=== PATIENT | female | born 1975 | race Caucasian/White ===

== ENCOUNTER 2025-06-26 01:39 | Day surgery (SDC) | payer OTHER, SELFPAY ==
[2025-06-18 08:42] VITALS: BMI 26.2
--- NOTE | 2025-06-18 08:47 | PC.NURSE ---
Report to the Outpatient Waiting Room, entrance under the green pavilion located off [facility], at time _0730_ on date _06/26/25. Planned Procedure Time: __929_.? Time changes happen often and if your time is changed the preop area will call you the afternoon before. - You and your visitor will be asked to self-screen and do not enter if you have any COVID symptoms. Please call surgeon if you need to reschedule. - A mask is optional within the hospital at this time. Patients may have clear liquids (water, carbonated beverages, clear teas, apple juice) until 3 hours prior to surgery with a maximum of 20 ounces. - No food from midnight until time of surgery and no smoking, or chewing tobacco (or any form of nicotine). No chewing gum, candy or mints. - Infants may have breast milk until 4 hours before surgery, infant formula 6 hours prior to surgery. - Children will be allowed to drink immediately following surgery.? If applicable, please bring a bottle or sippy cup to assist with drinking. Juice, water, soda, and popsicles are readily available.? For infants on formula, please bring formula the day of surgery.? Pacifiers are allowed. Take only the following medications with a SIP of water on the morning of surgery: _NONE DO NOT STOP ANY OF YOUR OTHER PRESCRIPTION MEDICATIONS PRIOR TO SURGERY EXCEPT THE FOLLOWING Hold all vitamins and supplements for 3 days per anesthesiologist. Medications to discontinue per physician Date to take last dose 06/23/25 Please no make-up, nail comoran, hairspray, perfume, deodorant, or body powder the day of surgery.? No jewelry (including any body piercings) or valuables the day of surgery, leave them at home.? Please take a shower or bath the night before, or the morning of, surgery with an antibacterial soap.? Wear comfortable, loose fitting clothing.? Children are encouraged to wear pajamas. - Jewelry must be removed prior to entering the operating room.? Rings and piercings that are not removed may be cut off. - The hospital will not accept responsibility for valuables.? - Please leave all valuables, including medications, at home the day of surgery. If you are going home after surgery, a licensed seasonal delivery driver must drive you home.? - NO public transportation without another adult if you receive anesthesia. - We recommend that an adult stay with you for 24 hours following discharge. - We also recommend that you do not drive, make important decision, drink alcoholic beverages, or take any drugs that were not prescribed by your health care provider for at least 24 hours after your discharge time. For Pediatric surgeries, we recommend two adults accompany the child home. Follow any additional instructions given to you from your surgeon. Telephone instructions given to PATIENT and asked if any additional questions and then verbalized understanding. Patient advised to call surgeon office or pre surgery nurse liaison [phone] if any additional questions.
--- NOTE | 2025-06-26 06:42 | W.PM.PROC2 ---
Procedure Note - Detailed Date of Procedure 06/26/25 Pre-op Diagnosis Skin Laxity Post-op Diagnosis Same Procedure Performed [id number] belt lipectomy with suction lipectomy Surgeon Blu Mobley MD Findings Tissue removed: [grams] grams Lipoaspirate: [cc] cc Description of Procedure They are here today for the above procedures. Previously and again today the risks, benefits, alternatives were discussed in extensive detail. I wanted them to be very realistic about the risks involved as well as expectations. We discussed aftercare and what to monitor for. I was very upfront about the risks of wound breakdown leading to loss of skin, open wounds, and need for additional procedures with permanent abdominal deformity. We discussed DVT/PE risks and management. Made sure answered all of their questions to their satisfaction today and consent was obtained. They were marked in the preoperative holding area with their verification. The patient was taken to the operating room. Anesthesia was provided by anesthesiology. A Scherer catheter was started. Posterior Placed prone on the operating room table with care taken to protect from injury. Prepped and draped in a standard sterile fashion. A surgical time-out was taken. Stab incisions were made and tumescent solution was infiltrated. Once adequate time was allowed for hemostasis a 5mm basket and 4mm iris cannula were utilized to complete suction lipectomy based on S.A.F.E. technique in multiple planes and passes. Suction lipectomy continued to result based on pre-operative planning, intra-operative observation, and rolling pinch test which were in full agreement. A 10 blade was used to make the upper incision and dissection was continued inferior elevating what we necessary for closure. I placed patient in slight jackknife position and excised intervening tissue. This was closed with 3 point suture with 2-0 Vicryl followed 2-0 PDO strattafix, 3-0 stratafix ,running subcuticular 4-0 Monocryl, and tissue glue. Laterally jose were placed for turning. Anterior Patient was then placed supine with care taken to protect from injury. I placed the patient in a flexed position to verify the upper and lower markings would reach. I then placed supine. A thorough abdominal examination was completed. Stab incisions were made and tumescent solution infiltrated. Stab incisions were made and tumescent solution was infiltrated. Once adequate time was allowed for hemostasis a 5mm basket and 4mm iris cannula were utilized to complete suction lipectomy based on S.A.F.E. technique in multiple planes and passes. Suction lipectomy continued to result based on pre-operative planning, intra-operative observation, and rolling pinch test which were in full agreement. A 10 blade was used to make the upper incision as well as the vertical ([id number]) incisions. I continued dissection down to the level of fascia. Elevated just what was necessary for repair of the diastasis (no undermining). I then again flexed the bed to verify the upper skin flap would reach the lower markings without tension. Once verified I placed her supine once again and a 10 blade used to make the lower incision. I elevated up to level the umbilicus and left the umbilicus intact on a well-vascularized stalk. The intervening tissue was removed. A 2 mm blunt cannula with 0.5% bupivacaine was injected deep to the fascia bilaterally. DIASTASIS I plicated the diastasis recti using 0 PDO Stratafix barbed suture. This was in 2 separate layers using 2 separate sutures as well. OBLIQUE REPAIR I also repaired lateral to the rectus using two layers of 0 PDO Stratafix. TRANSVERSE FASCIA REPAIR After the patient was flexed (below) plicated the fascia with 0 PDO Stratafix in two separate layers. The patient was flexed and starting from superior to inferior began plication using 2-0 Vicryl to obliterate all space in a standard progressive tension fashion while repairing the vertical incision. At the umbilicus I marked out the location of the skin and inset this with 3-0 Monocryl and 4-0 Vicryl. I continued the remainder of the plication using 2-0 Vicryl until I reached my lower planned scar line. I trimmed any excess skin of the upper flap making sure this was a tension-free closure. 15 Chad drain was placed. I then approximated using a 3 point suture with 2-0 Vicryl followed by 2-0 PDO Stratafix, 3-0 Stratafix ,running subcuticular 4-0 Monocryl, and tissue glue. Vertical was closed with 3-0 Stratafix, 4-0 Monocryl, and tissue glue. Fluffs and an abdominal binder were placed. The patient was transferred to the bed in a flexed position. Awoken and taken to the PACU without difficulty. All instrument and sponge counts were correct at the end of the case. Estimated Blood Loss 100 Drains Yes (15 Chad) Packing No Pathology None sent Complications No immediate complications Disposition PACU
[2025-06-26] MEDS: LACTATED RINGERS 1,000 ML 30 ML IV CONT (08:30)
[2025-06-26] MEDS: TRANEXAMIC ACID 1,000MG/ISO100 1,000 MG/100 ML BAG 200 MG IVPB (08:30)
[2025-06-26 08:35] LABS: Hematocrit 34.4 % (37.0-47.0); Hemoglobin 11.3 g/dL (12.0-15.0); Immature Platelet Fraction Pct 2.0 % (0.9-11.2); Mean Corpuscular HGB Conc 32.8 g/dl (32-36); Mean Corpuscular Hemoglobin 30.8 pg (26-34); Mean Corpuscular Volume 93.7 fl (80-100); Platelet Count Result 92 k/mm3 (150-375); Red Blood Count 3.67 M/mm3 (4.2-5.4); White Blood Count 2.2 K/mm3 (4.5-10.0)
[2025-06-26 09:11] VITALS: BP 150/97; PULSE 70; TEMP 36.6; O2SAT 100; BMI 27.8
--- NOTE | 2025-06-26 09:12 | P.PNAN_ITS ---
Anes - Initial Pre Proc Eval Procedure: Operation Date: 06/26/25 09:30 Proposed Procedures p Belt Lipectomy, [id number] with Liposuction - Blu Mobley MD Date/Time: 06/26/25 09:12 Surgeon: Blu Mobley MD Pre Op Diagnosis: Skin Laxity Patient Data Age: 50 Gender: F Height: 1.57 m Weight: 65 kg Allergies Allergy/AdvReac Type Severity Reaction Status Date / Time Penicillins Allergy Intermediate Rash Verified 06/26/25 08:54 Home Medications ?Medication ?Instructions ?Recorded ?Confirmed ?Type trazodone 100 mg tablet See Rx Instructions .Route 0 12/01/24 05/22/25 Rx .COMPLEX #30 tabs hydrocodone 5 mg-acetaminophen 325 1 tablet PO Q4H PRN pain #20 tabs 05/25/25 Rx mg tablet multivitamin-ferrous sulfate 18 mg 1 tablet PO DAILY 0 06/18/25 06/18/25 History tablet (One Daily Multivitamin with Iron) trazodone 100 mg tablet 50 mg PO HS PRN insomnia 06/18/25 History Laboratory Tests 06/26/25 06/26/25 07:48 08:15 WBC 2.2 L K/mm3 (4.5-10.0) RBC 3.67 L M/mm3 (4.2-5.4) Hgb 11.3 L g/dL (12.0-15.0) Hct 34.4 L % (37.0-47.0) MCV 93.7 fl (80-100) MCH 30.8 pg (26-34) MCHC 32.8 g/dl (32-36) RDW 13.2 % (11.5-14.5) Plt Count 92 L k/mm3 (150-375) MPV 9.5 fl (7.4-10.4) % Immature Plt Fraction 2.0 % (0.9-11.2) Cotinine Negative Patient hx anesthesia problems: none Family hx anesthesia problems: none Results Review: All pre-operative results and documents have been reviewed as part of the pre- operative evaluation. [facility] Past Medical History Medical History Chronic venous stasis (Unknown) Anxiety Migraine Morbid obesity with BMI of 40.0-44.9, adult (Unknown) Surgical History Surgical History History of tubal ligation (1995) History of section History of gastric bypass (2004) History of cholecystectomy (2012) Family History Family History Mother Hypertension Grandparent Hypertension Cerebrovascular accident Diabetes mellitus Social History Social History Smoking status: Never smoker Second hand tobacco smoke exposure: No Alcohol intake: current Drinks per week: 4 Alcohol use details: SOCIALLY Substance use: never Substance use type: does not use Living arrangements: with family Occupation/Education: occupation Gender identity (if verbalized by the patient): Female Sexual Orientation (if Verbalized by the Patient): Straight or Heterosexual Spiritual care concerns: No Agree to blood products: Yes Anes - Eval Final PreProcedure Day of Procedure 06/26/25 09:12 Patient weight: normal Heart: regular rate and rhythm Lungs: clear to auscultation Airway: Mallampati scale class II Neurological: alert and oriented Last oral intake: >/= 8 hours ASA classification: II Emergent: no Anesthetic plan: proceed Anesthesia type and monitoring: general ETT and standard monitoring Results Review: All pre-operative results and documents have been reviewed as part of the pre- operative evaluation. Informed Consent: The patient's anesthetic plan and its attendant risks and benefits were discussed with the patient/family/POA. Questions were solicited and answers provided to the satisfaction of the patient/family/POA.
--- NOTE | 2025-06-26 09:14 | WPDHPUPDATE1 ---
History and Physical Update Update Date/Time: 06/26/25 09:14 History and Physical has been reviewed, including an updated exam of the patient. There are NO changes in the patient's condition. Risks, benefits, and alternatives have been discussed and questions answered. Patient agrees to proceed with procedure.
--- NOTE | 2025-06-28 10:51 | PC.NURSE ---
06/26/2025 0830: Dr. Mobley was verbally told by this nurse ultrasound IV had to be placed and CBC was sent STAT when IV access was obtained at 0830.
== END 2025-06-26 09:56 | disposition home or self-care (01) ==
PROVIDERS: PCP Family Medicine; Visit Provider Surgery Plastic and Reconstructive Surgery
DX: Z41.1 Encounter for cosmetic surgery (principal); L57.4 Cutis laxa senilis; Z98.84 Bariatric surgery status; Z53.9 Procedure and treatment not carried out, unspecified reason
CPT/HCPCS: 36415; 80307; 85027; 85055; 99212; G0463; J0166; J1171; J2003; J7120

== ENCOUNTER 2025-06-27 11:11 | Outpatient (CLI) | payer OTHER, SELFPAY ==
[2025-06-27 11:34] LABS: Hematocrit 36.4 % (37.0-47.0); Hemoglobin 11.5 g/dL (12.0-15.0); Immature Granulocyte Percent A 0.9 % (0-0.5); Immature Platelet Fraction Pct 2.6 % (0.9-11.2); Lymphocytes Absolute Auto 0.63 K/mm3 (0.9-3.2); Mean Corpuscular HGB Conc 31.6 g/dl (32-36); Mean Corpuscular Hemoglobin 30.3 pg (26-34); Mean Corpuscular Volume 96.0 fl (80-100); Nucleated Red Blood Cells Absolute Auto 0.000 K/mm3 (0.0-0.012); Nucleated Red Blood Cells Perc 0.0 % (0.0-0.2); Platelet Count Result 95 k/mm3 (150-375); Red Blood Count 3.79 M/mm3 (4.2-5.4); White Blood Count 2.1 K/mm3 (4.5-10.0)
[2025-06-27 11:53] LABS: Alanine Aminotransferase 63 U/L (6-35); Albumin Level 3.8 g/dL (3.5-5.1); Alkaline Phosphatase 109 U/L (38-126); Anion Gap 5 mmol/L (4-12); Aspartate Amino Transferase 78 U/L (14-36); Bilirubin,Total 0.5 mg/dL (0.2-1.3); Blood Urea Nitrogen 8 mg/dL (7-17); Calcium 8.6 mg/dL (8.4-10.2); Carbon Dioxide 31 mmol/L (22-30); Chloride 104 mmol/L (98-107); Estimated Glomerular Filt Rate > 60; Glucose 83 mg/dL (65-110); Potassium 4.1 mmol/L (3.4-5.0); Sodium 140 mmol/L (137-145); Total Protein 6.9 g/dL (6.3-8.2)
[2025-06-27 12:49] LABS: HIV 1/2 Ab P24 Ag Result Negative (Negative)
== END 2025-06-27 11:12 | disposition home or self-care (01) ==
LOC: ANHLAB 11:12
PROVIDERS: PCP Family Medicine; Visit Provider Family Medicine
DX: D69.6 Thrombocytopenia, unspecified (principal)
CPT/HCPCS: 36415; 80053; 85025; 85055; 86703; G0432

== ENCOUNTER 2025-07-24 07:58 | Outpatient (CLI) | payer OTHER, SELFPAY ==
--- NOTE | ~2025-07-24 | US_ITS ---
Examination: US abdomen complete Clinical History: Pancytopenia . Comparison: Abdominal ultrasound 03/24/2024 Technique: Complete abdominal sonography Findings: Liver: Normal size. Normal echotexture. No intrahepatic biliary ductal dilatation. Normal hepatopedal flow main portal vein. Common duct: Normal caliber, 5 mm. Gallbladder: Removed. Spleen: Enlarged. Pancreas: Unremarkable. Kidneys: Unremarkable. Aorta: No aneurysmal dilatation. Retrohepatic IVC: Unremarkable. IMPRESSION: 1. No acute findings. 2. Splenomegaly. Reviewed, dictated and finalized at location R.
--- OUTSIDE RECORDS SUMMARY | 2025-07-24 08:14 | XMS_ITS | Clinical Summary ---
Author Organization [facility] Address [address] [place] [address] Phone Care Team Providers Care Lever Operator Name Role Phone Ros Davenport DO Primary Care Provider [phone] Chad Irwin MD Unavailable [phone] Allergies Active Allergy Reactions Criticality Noted Date Comments Amoxicillin Rash 07/20/2025 Medications traZODone (DESYREL) 100 MG Tablet Take 100 mg by mouth nightly. 5 Active TUBERCULIN SYR 1CC/26GX3/8 (B-D TB SYRINGE 1CC/26GX3/8) 26G X 3/8 1 ML Misc Use with b12 injections 10 Each 1 5 Active Cyanocobalamin (Vitamin Deficiency System-B12) 1000 MCG/ML Kit Vit b12 1000 mcg weekly x 4 weeks then q 4 weeks 10 Kit 1 5 Active Active Problems No known active problems Encounters Date Type Department Care Team Description 07/23/2025 Results Follow-Up [facility] [address] [place] [address] Chad Irwin MD HOMOCYSTEINE, THYROID STIMULATING HORMONE (TSH), C-REACTIVE PROTEIN (CRP) QUANT, Additional followed-up results: 10 07/20/2025 10:45 AM CDT Lab [facility] [address] [place] [address] Lab, C[facility] [place] Pancytopenia; History of Emron-en-Y gastric bypass 07/20/2025 10:30 AM CDT Office Visit [facility] [address] [address] Chad Irwin MD Pancytopenia (Primary Dx); History of Meron-en-Y gastric bypass 07/20/2025 Travel from Last 3 Months Family History Medical History Relation Name Comments High Cholesterol Mother Hypertension Mother Relation Name Status Comments Father Alive Mother Alive Social History Tobacco Use Types Packs/Day Years Used Date Smoking Tobacco: Never Smokeless Tobacco: Never Alcohol Use Standard Drinks/Week Comments Yes 1 (1 standard drink = 0.6 oz pur e alcohol) Sexually Active Control Partners Comments Yes Male Comments Unknown Sex and Gender Information Value Date Recorded Sex Assigned at Not on file Legal Sex Female 11:22 AM CDT Gender Identity Not on file Sexual Orientation Not on file Last Filed Vital Signs Vital Sign Reading Time Taken Comments Blood Pressure 132/86 07/20/2025 9:36 AM CDT Pulse 74 07/20/2025 9:36 AM CDT Temperature 36.7 C (98 F) 07/20/2025 9:36 AM CDT Respiratory Rate 18 07/20/2025 9:36 AM CDT Oxygen Saturation 99% 07/20/2025 9:36 AM CDT Inhaled Oxygen Concentration - - Weight 70.2 kg (154 lb 11.2 oz) 07/20/2025 9:36 AM CDT Height 157.5 cm (5' 2) 07/20/2025 9:36 AM CDT Body Mass Index 28.3 07/20/2025 9:36 AM CDT Plan of Treatment Upcoming Encounters Date Type Department Care Team (Late st Contact Info) Description 08/03/2025 11:00 AM CDT Office Visit [facility] [address] [address] Chad Irwin MD [address] [place] [address] Health Maintenance Due Date Last Done Comments Hepatitis C Virus (HCV) Screening 1975 Mammogram 1975 TdaP Immunization 1975 Hepatitis B Immunization (1 of 3 - 19+ 3-dose series) 1994 Cologuard 2020 Colonoscopy 2020 Colorectal Cancer Screening 2020 Immunochemical Fecal Occult Blood 2020 Pneumococcal Immunization (5 0+ years) (1 of 1 - PCV) 2025 Zoster Immunization (1 of 2) 2025 Influenza Immunization (#1) 2025 SARS-COV-2 Immunization (3 - 2024- season) 2025 02/27/2021, 01/28/2021 Respiratory Syncytial Virus (RSV) Immunization (Adult) (1 - 1-dose 75+ series) 2050 Human Papillomavirus (HPV) Immunization Aged Out No longer eligible b ased on patient's age to complete this topic Meningococcal Immunization (ACWY) Aged Out No longer eligible b ased on patient's age to complete this topic Rotavirus Immunization Aged Out No lo nger eligible based on patient's age to complete this topic Procedures Procedure Name Priority Date/Time Associated Diagnosis Comments SERUM FREE LIGHT CHAINS, [place] Routine 07/20/2025 10:51 AM CDT COMPLETE BLOOD COUNT (CBC) WITH DIFF Routine 07/20/2025 10:51 AM CDT Pancytopenia History of Meron-en-Y gastric bypass CMP (COMPREHENSIVE METABOLIC PANEL) Routine 07/20/2025 10:51 AM CDT Pancytopenia History of Meron-en-Y gastric bypass LACTATE DEHYDROGENASE (LD) Routine 07/20/2025 10:51 AM CDT Pancytopenia History of Meron-en-Y gastric bypass VITAMIN B12 Routine 07/20/2025 10:51 AM CDT Pancytopenia History of Meron-en-Y gastric bypass FOLIC ACID (FOLATE) Routine 07/20/2025 1 0:51 AM CDT Pancytopenia History of Meron-en-Y gastric bypass IRON W/ IRON BINDING CAPACITY OH Routine 07/20/2025 10:51 AM CDT Pancytopenia History of Meron-en-Y gastric bypass FERRITIN Routine 07/20/2025 10:51 AM CDT Pancytopenia History of Meron-en-Y gastric bypass ELECTROPHORESIS W/ TOTAL PROTEIN SERUM Routine 07/20/2025 10:51 AM CDT Pancytopenia History of Meron-en-Y gastric bypass ERYTHROCYTE SEDIMENTATION RATE (ESR) Routine 07/20/2025 10:51 AM CDT Pancytopenia History of Meron-en-Y gastric bypass C-REACTIVE PROTEIN (CRP) QUANT Routine 07/20/2025 10:51 AM CDT Pancytopenia History of Meron-en-Y gastric bypass THYROID STIMULATING HORMONE (TSH) Routine 07/20/2025 10:51 AM CDT Pancytopenia History of Meron-en-Y gastric bypass HOMOCYSTEINE Routine 07/20/2025 10:51 AM CDT Pancytopenia History of Meron-en-Y gastric bypass from Last 3 Months Results * SERUM FREE LIGHT CHAINS, [place] (07/20/2025 10:51 AM CDT) FREE KAPPA LT CHAINS 15.9 2.9 - 20.7 mg/L [facility] FREE LAMBDA LT CHAINS 23.1 4.2 - 27.6 mg/L [facility] KAPPA/LAMBDA RATIO 0.69 0.22 - 1.74 [facility] 07/20/2025 10:5 1 AM CDT us Chad Irwin MD LAB SEND OUTS Final Res ult [facility] REPLACED BY [facility] [place] [address] [place] [address], * (ABNORMAL) IRON W/ IRON BINDING CAPACITY [place] (07/20/2025 10:51 AM CDT) IRON 56 50 - 212 ug/dL [facility] REPLAC[facility] BY [facility] UIBC 369(H) 155 - 355 ug/dL [facility] REPLACED BY [facility] TIBC 425 261 - 478 ug/dl [facility] REPLACED BY [facility] % Saturation 13(L) 20 - 50 % [facility] REPLAC[facility] BY [facility] Blood 07/20/2025 10:5 1 AM CDT [facility] - 07/20/2025 11:59 AM CDT Release to patient->Immediate Chad Irwin MD LAB SEND OUTS Final Res ult Performing Organization Address [facility]/ZIP Co de Phone Number [facility] REPLAC[facility] [address] [place] [address], * (ABNORMAL) HOMOCYSTEINE (07/20/2025 10:51 AM CDT) Pathologist [facility] HOMOCYST(E)INE , PLASMA 22.2(H) 0.0 - 14.5 UMOL/L [facility] HEATING AND VENTILATION ENGINEER REPLACED BY [facility] Blood 07/20/2025 10:5 1 AM CDT [facility] - 07/21/2025 7:35 AM CDT TESTING PERFORMED AT: [] LAB[address], [address], PHONE: [phone], PRINT PRODUCTION ASSOCIATE: MERCEDEZ ALTAMIRANO, PHD Release to patient->Immediate Chad Irwin MD CHEMISTRY ORDERABLES Helen l Result Performing Organization Address City/[facility]/ZIP Co de Phone Number [facility] REPLACED BY [facility] [address] [place] [address], * VITAMIN B12 (07/20/2025 10:51 AM CDT) Vitamin B12 183 180 - 914 pg/mL [facility] REPLACED BY [facility] Blood 07/20/2025 10:5 1 AM CDT Narrative [facility] REPLAC[facility] BY [facility] - 07/23/2025 3:21 PM CDT Release to patient->Immediate Chad Irwin MD CHEMISTRY ORDERABLES Helen l Result [facility] REPLACED BY [facility] [place] [address], [place] [phone] * THYROID STIMULATING HORMONE (TSH) (07/20/2025 10:51 AM CDT) TSH 1.78 0.45 - 5.33 uIU/mL [facility] REPLACED BY [facility] Blood 07/20/2025 10:5 1 AM CDT [facility] - 07/23/2025 2:53 PM CDT Release to patient->Immediate Chad Irwin MD CHEMISTRY ORDERABLES Helen l Result Performing Organization Address City/[facility]/ZIP Co de Phone Number [facility] REPLACED BY [facility] [place] [address], [place] [phone] * ERYTHROCYTE SEDIMENTATION RATE (ESR) (07/20/2025 10:51 AM CDT) Erythrocyte Sedimentation Rate 2 0 - 30 mm/hr [facility] REPLACED BY [facility] Blood 07/20/2025 10:5 1 AM CDT [facility] - 07/20/2025 12:31 PM CDT Release to patient->Immediate Chad Irwin MD HEMATOLOGY ORDERABLES Fin al Result [facility] REPLACED BY [facility] [place] [address], [place] [phone] * LACTATE DEHYDROGENASE (LD) (07/20/2025 10:51 AM CDT) LDH 223 140 - 271 U/L [facility] REPLAC[facility] Blood 07/20/2025 10:5 1 AM CDT [facility] - 07/20/2025 11:59 AM CDT Release to patient->Immediate Chad Irwin MD CHEMISTRY ORDERABLES Helen l Result [facility] VENTILATION ENGINEER REPLACED BY [facility] [place] [address], * (ABNORMAL) FOLIC ACID (FOLATE) (07/20/2025 10:51 AM CDT) Folate 5.48(L) >=5.90 ng/mL [facility] REPLACED BY [facility] Blood 07/20/2025 10:5 1 AM CDT [facility] - 07/23/2025 2:53 PM CDT Release to patient->Immediate IS THE PATIENT REQUIRED TO BE FASTING FOR 12 HOURS?->No Chad Irwin MD CHEMISTRY ORDERABLES Helen l Result Performing Organization Address [facility] Co de Phone Number [facility]ENTILATION ENGINEER REPLACED BY [facility] [place] [address], * FERRITIN (07/20/2025 10:51 AM CDT) Ferritin 44 11 - 307 ng/mL [facility] Blood 07/20/2025 10:5 1 AM CDT [facility] - 07/23/2025 2:53 PM CDT Release to patient->Immediate us Chad Irwin MD CHEMISTRY ORDERABLES Helen l Result [facility]ENTILATION ENGINEER REPLACED BY [facility] [address] [place] [address], [place] [phone] * ELECTROPHORESIS W/ TOTAL PROTEIN SERUM (07/20/2025 10:51 AM CDT) PROTEIN, TOTAL, SERUM 6.7 6.0 - 8.5 G/DL [facility] REPLACED BY [facility] ALBUMIN 3.7 2.9 - 4.4 G/DL [facility] REPLACED BY [facility] YFPLS-5-[id number] 0.2 0.0 - 0.4 G/DL [facility]IL[facility]INE[facility] REPLACED BY [facility] ALDUP-5-ZCXIJHDE 0.5 0.4 - 1.0 G/DL [facility]ENTILATION ENGINEER REPLACED BY [facility] BETA GLOBULIN 1.0 0.7 - 1.3 G/DL [facility] HEATING AND VENTILATION ENGINEER REPLACED BY [facility] GAMMA GLOBULIN 1.4 0.4 - 1.8 G/DL [facility]ENTILATION ENGINEER REPLACED BY [facility] M-SPIKE NOT OBSERVED NOT OBSERVED G/DL [facility]ILATION ENGINEER REPLACED BY [facility] GLOBULIN, TOTAL 3.0 2.2 - 3.9 G/DL [facility]IL[facility]INE[facility] REPLACED BY [facility] A/G RATIO 1.2 0.7 - 1.7 [facility] REPL[facility] BY [facility] PLEASE NOTE: COMMENT [facility] RE[facility]AC[facility] BY [facility] Comment: PROTEIN ELECTROPHORESIS SCAN WILL FOLLOW VIA COMPUTER, MAIL, OR LEAD SOFTWARE TEST ENGINEER DELIVERY. PDF . [facility] Blood 07/20/2025 10:5 1 AM CDT Narrative [facility] - 07/23/2025 3:08 PM CDT TESTING PERFORMED AT: [] LAB[address], [address], PHONE: [phone], PRINT PRODUCTION ASSOCIATE: MERCEDEZ ALTAMIRANO, PHD Release to patient->Immediate Chad Irwin MD CHEMISTRY ORDERABLES Helen sevilla Result [facility]IL[facility] REPLACED BY [facility] [place] [address], [place] [phone] * (ABNORMAL) CMP (COMPREHENSIVE METABOLIC PANEL) (07/20/2025 10:51 AM CDT) Glucose 89 70 - 105 mg/dL [facility] Blood Urea Nitrogen 7 7 - 25 mg/dL [facility] Creatinine 0.6 0.6 - 1.2 mg/dL [facility] Sodium 143 136 - 145 mEq/L [facility] Potassium 3.8 3.5 - 5.1 mEq/L [facility] Chloride 105 98 - 107 mEq/L [facility] Bicarbonate 31 21 - 31 mEq/L [facility] Total Bilirubin 0.8 0.3 - 1.0 mg/dL [facility] Alk. Phosphatase 117(H) 34 - 104 U/L [facility] Aspartate Aminotransferase 140(H) 13 - 39 U/L [facility] Alanine Aminotransferase 60(H) 7 - 52 U/L [facility] Total Protein 6.5 6.4 - 8.9 g/dL [facility] Albumin 3.8 3.5 - 5.7 g/dL [facility] Calcium 8.7 8.6 - 10.3 mg/dL [facility] Anion Gap 10.8 7.0 - 15.0 mEq/L [facility] Globulin 2.7 2.0 - 3.5 g/dL [facility] EGFR 109 >60 ml/min/1. 73m2 [facility] Comment: This eGFR is calculated using 2020 CKD-EPI Creatinine equation without race modifier based on the NKF-ASN task force recommendations Equation: cCSK=288*min(SCr/k,1)a*max(SCr/k,1)-1.200*0.9938Age*1.012 (if female), where SCr is serum creatinine, k is 0.7 for females and 0.9 for males, and a is -0.241 for females and -0.302 for males Blood 07/20/2025 10:5 1 AM CDT Narrative [facility] - 07/20/2025 11:59 AM CDT Release to patient->Immediate IS THE PATIENT REQUIRED TO BE FASTING FOR 8 HOURS?->No us Chad Irwin MD CHEMISTRY ORDERABLES Helen l Result [facility] VENTILATION ENGINEER REPLACED BY [facility] [place] [address], * (ABNORMAL) COMPLETE BLOOD COUNT (CBC) WITH DIFF (07/20/2025 10:51 AM CDT) WBC 2.5(L) 4.0 - 10.0 10*3/uL [facility] REPLACED BY [facility] HGB 11.4 11.2 - 15.7 g/dL [facility]INE[facility] REPLACED BY [facility] HCT 35.7 34.1 - 44.9 % [facility]ILATION ENGINE[facility] REPLACED BY [facility] PLT 105(L) 163 - 369 10*3/uL [facility]IL[facility]INE[facility] REPLACED BY [facility] MPV 9.7 9.4 - 12.4 fL [facility] REPLACED BY [facility] RBC 3.84(L) 3.93 - 5.22 10*6/uL [facility]IL[facility] ENGINE[facility] REPLACED BY [facility] MCV 93 79 - 95 fL [facility]IL[facility] ENGINE[facility] REPLACED BY [facility] MCH 29.7 25.6 - 32.2 pg [facility]ENTILATION ENGINEER REPLACED BY [facility] MCHC 31.9(L) 32.2 - 36.5 g/dL [facility]ENTILATION ENGINEER REPLACED BY [facility] RDW 13.6 11.6 - 14.4 % [facility]ILATION ENGINEER REPLACED BY [facility] Absolute Neutrophil Count 1,753 cells/uL [facility] Absolute Seg Count 1,753 1,440 - 6,600 cells/uL [facility]ENTILATION ENGINEER REPLACED BY [facility] Absolute Lymph Count 635(L) 760 - 4,000 cells/uL [facility]ENTILATION ENGINEER REPLACED BY [facility] Absolute Brooks Count 152(L) 160 - 1,200 cells/uL [facility]ENTILATION ENGINEER REPLACED BY [facility] Segmented Neutrophils 69(H) 36 - 66 % [facility]ENTILATION ENGINEER REPLACED BY [facility] Lymphocytes 25 19 - 40 % [facility] Monocytes 6 4 - 12 % [facility] REPLACED BY [facility] WBC Estimate Low [facility] VENTILATION ENGINEER REPLACED BY [facility] Platelet Estimate Low [facility] AND VENTILATION ENGINEER REPLACED BY [facility] RBC Morphology Normal CANCE R HEATING AND VENTILATION ENGINEER REPLACED BY [facility] Blood 07/20/2025 10:5 1 AM CDT Narrative [facility] REPLAC[facility] BY [facility] - 07/20/2025 12:40 PM CDT Release to patient->Immediate Chad Irwin MD HEMATOLOGY ORDERABLES Fin al Result [facility]ENTILATION ENGINEER REPLACED BY [facility] [address] [address], [place] [phone] * C-REACTIVE PROTEIN (CRP) QUANT (07/20/2025 10:51 AM CDT) CRP <5.0 <5.0 mg/L [facility] Blood 07/20/2025 10:5 1 AM CDT Narrative [facility] - 07/23/2025 2:17 PM CDT Release to patient->Immediate Chad Irwin MD CHEMISTRY ORDERABLES Helen l Result Performing Organization Address City/[facility]/ZIP Co de Phone Number [facility] [address] [place] [address], [place] [phone] from Last 3 Months Insurance [employer] [facility] Care Teams Lever Operator Relationship Specialty Start Date End Date Ros Davenport DO [address] [place] [address] PCP - General Allergy & Immunology 07/06/25 Chad Irwin MD [address] [place] [phone] Consulting Physician Oncology 07/06/25
--- OUTSIDE RECORDS SUMMARY | 2025-07-24 08:14 | XMS_ITS | Encounter Summary ---
Author Organization [facility] Address [address] [place] [address] Phone Care Team Providers Care Rug Cleaner Hand Name Role Phone DavenoprtRos Primary Care Provider [phone] Chad Irwin MD Unavailable [phone] Encounter Details Date Type Department Care Team (Latest Contact Info) Description 07/23/2025 Results Follow-Up [facility] [address], [address] [phone] Chad Irwin MD [address] [address] HOMOCYSTEINE, THYROID STIMULATING HORMONE (TSH), C-REACTIVE PROTEIN (CRP) QUANT, Additional followed-up results: 10 Social History Tobacco Use Types Packs/Day Years [...] on file Sexual Orientation Not on file documented as of this encounter Plan of Treatment Upcoming Encounters Date Type Department Care Team (Late st Contact Info) Description 08/03/2025 11:00 AM CDT Office Visit [facility] [address] [place] [address] Chad Irwin MD [address] [facility] [address] [place] [address] documented as of this encounter Visit Diagnoses Not on filedocumented in this encounter Care Teams Rug Cleaner Hand Relationship Specialty Start Date End Date Ros Davenport DO [address] [place] [address] PCP - General Allergy & Immunology 07/06/25 Chad Irwin MD [address] [place] [address] [address] [place] [address] Consulting Physician Oncology 07/06/25 documented as of this encounter
== END 2025-07-24 07:59 | disposition home or self-care (01) ==
PROVIDERS: PCP Family Medicine
DX: D61.818 Other pancytopenia (principal); R16.1 Splenomegaly, not elsewhere classified; Z98.84 Bariatric surgery status
CPT/HCPCS: 76700

== ENCOUNTER 2025-09-03 13:20 | Outpatient (CLI) | payer OTHER, SELFPAY ==
--- NOTE | ~2025-09-03 | MM_ITS ---
EXAMINATION: MM screening nolan BI w diana HISTORY: Screening TECHNIQUE: Craniocaudal and mediolateral oblique 3-D tomosynthesis images were obtained and synthetic 2-D images were generated. CAD analysis was submitted and interpreted. COMPARISON: Comparison to multiple prior studies sequentially, with oldest reviewed study dated 12/19/2018. BREAST PARENCHYMAL COMPOSITION: Dense: The breasts are heterogeneously dense, which may obscure small masses FINDINGS: There is no evidence of suspicious mass, calcification, or architectural distortion to suggest malignancy in either breast. There has been no suspicious interval change. IMPRESSION: 1. No mammographic evidence of malignancy. 2. Recommend routine screening mammography in one year. BI-RADS Category 1: Negative Reviewed, dictated and finalized at location B. [employer]
== END 2025-09-03 13:21 | disposition home or self-care (01) ==
PROVIDERS: PCP Family Medicine; Visit Provider Obstetrics & Gynecology
DX: Z12.31 Encounter for screening mammogram for malignant neoplasm of breast (principal)
CPT/HCPCS: 77063; 77067